=== PATIENT | male | born 1985 | race Caucasian/White ===

== ENCOUNTER 2020-05-26 13:52 | Emergency (ER) | payer OTHER, SELFPAY ==
[2020-05-26 13:59] VITALS: BP 152/91; PULSE 100; RESP 20; TEMP 36.9; O2SAT 95; BMI 44.1
--- NOTE | 2020-05-26 14:38 | ED.URI ---
HPI - URI/Sore Throat General Chief Complaint: Upper Respiratory Symptoms Stated Complaint: [place]/throat swelling/Pain Time Seen by Provider: 05/26/20 14:20 Source: patient Mode of arrival: Ambulatory Limitations: no limitations History of Present Illness HPI Narrative: Patient is a 35-year-old male who was diagnosed with mononucleosis yesterday at [facility] he had blood work and a strep test done there. He presents today kidney having increased pain with swallowing but is still able to swallow. He has had ongoing pain for the last 4 days with fever no cough chest pain or shortness of breath MD Complaint: fever and sore throat Related Data Allergies Allergy/AdvReac Type Severity Reaction Status Date / Time No Known Drug Allergies Allergy Verified 05/26/20 13:59 Review of Systems Review of Systems ROS Unobtainable: All systems reviewed & are unremarkable except as noted in HPI and below Constitutional Constitutional: Denies chills, Denies fatigue and Reports fever(s) ENT Ears, Nose, Mouth, and Throat: Reports as per HPI Cardiovascular Cardiovascular: Denies chest pain, Denies irregular heart rhythm, Denies lightheadedness, Denies palpitations, Denies dyspnea, Denies dyspnea on exertion and Denies orthopnea Respiratory Respiratory: Denies cough, Denies dyspnea, Denies dyspnea on exertion and Denies wheezing Gastrointestinal Gastrointestinal: Denies abdominal pain, Denies change in bowel habits, Denies diarrhea, Denies nausea and Denies vomiting Musculoskeletal Musculoskeletal: Denies back pain and Denies deformity Integumentary/Breasts Skin/Breast: Denies pruritus, Denies erythema, Denies rash and Denies wounds Endocrine Endocrine: Denies fatigue and Denies palpitations Allergic/Immunologic Allergic/Immunologic: Denies wheezing Patient History Medical History Overweight (Acute) Social History Smoking Status: Current some day smoker Smoking Status: Current some day smoker tobacco type: vaping alcohol intake frequency: a few times a month Substance Use Type: does not use Exam Initial Vital Signs Initial Vital Signs: Vital Signs Temperature 98.5 F 05/26/20 13:59 Pulse Rate 100 H 05/26/20 13:59 Respiratory Rate 20 05/26/20 13:59 Blood Pressure 152/91 H 05/26/20 13:59 Pulse Oximetry 95 05/26/20 13:59 GENERAL: Overweight well-appearing young male and in no acute distress. HEENT: Head atraumatic,EOMI, pupils reactive, face symmetric, moist mucous membranes PHARYNX: Mild uvula swelling without deviation slight exudate of tonsils noted airway is patent cervical lymphadenopathy appreciated CARDIOVASCULAR: Regular rate and rhythm without murmurs, rubs or gallops. RESPIRATORY: Breath sounds equal bilaterally, no wheezes rales or rhonchi. ABDOMEN: Soft, nontender. Normoactive bowel sounds all 4 quadrants. No guarding or rebound. EXTREMITIES: Normal range of motion, no clubbing or edema. Neurovascularly intact NEUROLOGICAL: Alert and oriented x4.Normal gait and speech. Cranial nerves II through XII grossly intact. SKIN: Warm, dry, no laceration, no petechiae, no rashes or lesions. Course Orders Ordered: Discontinued Medications Ketorolac Tromethamine (Toradol) 30 mg IM NOW ONE Stop: 05/26/20 14:54 Last Admin: 05/26/20 15:09 Dose: 30 mg Documented by: NICOLE Vital Signs Vital signs: Vital Signs - 8 hr 05/26/20 13:59 Temperature 98.5 F Pulse Rate 100 H Respiratory Rate 20 Blood Pressure 152/91 H Pulse Oximetry 95 MDM - URI/Sore Throat MDM Narrative Medical decision making narrative: Patient has no sign of airway compromise he is diagnosed with mononucleosis. At this time recommend Tylenol and ibuprofen for pain control along with popsicles and fluids to stay hydrated. Discharge Plan Departure Patient Disposition: Home Clinical Impression: Mononucleosis Qualifiers: Infectious mononucleosis etiology: unspecified organism Infectious mononucleosis complication: without complication Qualified Code(s): B27.90 - Infectious mononucleosis, unspecified without complication Discharge Date/Time: 05/26/20 15:14 Instructions: DI for Mononucleosis-Adult Activity Restrictions/Additional Instructions: *You have been diagnosed with mononucleosis *What to do: This will take time, please rest, increase fluids recommend Gatorade, popsicles Jell-O broth *Continue to take medications as directed Ibuprofen 800 mg every 8 hours if needed for [id number] pain *Follow up with your primary care provider in 2-3 days *Return to ER if you should have inability to swallow-your spit, increasing pain or any new, worsening or concerning symptoms Referrals: [facility] [Outside]
[2020-05-26] MEDS: KETOROLAC 60 MG/2 ML VIAL 30 MG IM (15:09)
== END 2020-05-26 15:14 | disposition home or self-care (01) ==
PROVIDERS: Emergency Provider Emergency Medicine
DX: B27.90 Infectious mononucleosis, unspecified without complication (principal); R50.9 Fever, unspecified
CPT/HCPCS: 96372; 99283; J1885